=== PATIENT | female | born 1995 | race Caucasian/White ===

== ENCOUNTER 2023-02-07 14:52 | Outpatient (CLI) | payer OTHER, SELFPAY ==
[2023-02-07 16:23] LABS: Beta HCG Quantitative < 2.39 mIU/ML
== END 2023-02-07 14:53 | disposition home or self-care (01) ==
LOC: ANHLAB 14:55
PROVIDERS: Visit Provider Obstetrics & Gynecology
DX: N92.6 Irregular menstruation, unspecified (principal)
CPT/HCPCS: 36415; 84702